=== PATIENT | male | born 1985 | race African-American/Black ===

== ENCOUNTER 2019-12-08 05:23 | Emergency (ER) | payer MEDICAID, OTHER ==
[~2019-12-08] VITALS: Ht 185.4 cm; Wt 74.4 kg
[2019-12-08 05:27] VITALS: BP 140/89
[2019-12-08] MEDS ORDERED: KETOROLAC 30 MG/1 ML ONE (05:57)
[2019-12-08] MEDS ORDERED: CYCLOBENZAPRINE 10 MG TABLET ONE (05:57)
[2019-12-08] MEDS ORDERED: KETOROLAC 30 MG/1 ML IM ONE (06:00)
[2019-12-08] MEDS ORDERED: CYCLOBENZAPRINE 10 MG TABLET PO ONE (06:00)
== END 2019-12-08 06:06 | disposition home or self-care (01) ==
LOC: ED 05:55
DX: S39.012A Strain of muscle, fascia and tendon of lower back, initial encounter (principal); F17.200 Nicotine dependence, unspecified, uncomplicated; V73.6XXA Passenger on bus injured in collision with car, pick-up truck or van in traffic accident, initial encounter; Y93.89 Activity, other specified; Y92.89 Other specified places as the place of occurrence of the external cause; Y99.8 Other external cause status
CPT/HCPCS: 96372; 99283; J1885

== ENCOUNTER 2020-02-10 23:26 | Emergency (ER) | payer MEDICAID, OTHER ==
[~2020-02-10] VITALS: Ht 185.4 cm; Wt 78.7 kg
[2020-02-10 23:28] VITALS: BP 136/88
== END 2020-02-11 00:03 | disposition home or self-care (01) ==
LOC: ED 23:40
DX: H92.03 Otalgia, bilateral (principal)
CPT/HCPCS: 99281